=== PATIENT | female | born 1990 | race Caucasian/White ===

== ENCOUNTER 2019-06-29 13:30 | Outpatient (CLI) | payer BC | END 2019-06-29 13:31 | disposition home or self-care (01) | LOC: DTY/OP 13:30 | PROVIDERS: ATTEND Physician Assistant | DX: E66.01 Morbid (severe) obesity due to excess calories (principal) | CPT/HCPCS: 97802 ==

== ENCOUNTER 2019-07-03 08:12 | Outpatient (CLI) | payer BC ==
--- NOTE | 2019-07-03 09:21 | ULT ---
RIGHT UPPER QUADRANT ULTRASOUND: Date: 07/03/2019 HISTORY: 28-year-old female with right upper quadrant pain. FINDINGS: Exam limited due to patient's body habitus. The liver is not satisfactorily evaluated. The visualized portions of the liver demonstrated increase d echogenicity consistent with fatty infiltration. No definite focal mass or intrahepatic ductal dila tation is seen. No gallstones, gallbladder wall thickening, or pericholecystic fluid identified. The common duct measures 5.0 mm in diameter. The right kidney and visualized portions of the pancreas are unremarkable. No free fluid is seen in Morison's pouch. IMPRESSION: 1. Fatty liver. 2. No evidence of cholelithiasis. POS: [facility]
== END 2019-07-03 08:13 | disposition home or self-care (01) ==
LOC: ULT 08:12 → SCSULT 08:13
PROVIDERS: ATTEND Physician Assistant
DX: R10.11 Right upper quadrant pain (principal); K76.0 Fatty (change of) liver, not elsewhere classified
CPT/HCPCS: 76705

== ENCOUNTER 2019-07-10 12:21 | Outpatient (CLI) | payer BC ==
--- NOTE | 2019-07-10 15:22 | RAD ---
PA AND LATERAL CHEST: 07/10/19 HISTORY: Preop. Heart size is upper limits of normal. Mediastinal structures appear unremarkable. The lungs are clear of infiltrates. There are arthritic changes of the spine. IMPRESSION: No active intrathoracic disease. POS: [facility]
== END 2019-07-10 12:22 | disposition home or self-care (01) ==
LOC: BICRAD 12:21
PROVIDERS: ATTEND Physician Assistant
DX: Z01.818 Encounter for other preprocedural examination (principal); I10 Essential (primary) hypertension; E66.01 Morbid (severe) obesity due to excess calories
CPT/HCPCS: 36415; 71046; 80053; 80061; 81001; 83036; 85025

== ENCOUNTER 2019-07-16 09:24 | Outpatient (CLI) | payer OTHER ==
[2019-07-17 11:12] LABS: SARS-CoV-2 MS2 Positive; SARS-CoV-2 N Gene Negative; SARS-CoV-2 S Gene Negative; SARS-CoV-2 orf1ab Negative
== END 2019-07-16 09:25 | disposition home or self-care (01) ==
LOC: LABBT 09:24
PROVIDERS: ATTEND Surgery
DX: Z01.812 Encounter for preprocedural laboratory examination (principal); Z11.59 Encounter for screening for other viral diseases; E66.01 Morbid (severe) obesity due to excess calories
CPT/HCPCS: 87635; U0003

== ENCOUNTER 2019-07-16 16:00 | Inpatient (IN) | payer OTHER ==
[2019-07-18] MEDS ORDERED: Levofloxacin 500 mg/D5W 100 ml Premix Bag ONE (06:35)
[2019-07-18] MEDS ORDERED: Heparin 5,000 UNITS/ML VIAL ONE (06:35)
[2019-07-18] MEDS ORDERED: Fentanyl 100 MCG/2 ML VIAL ONE ×2 (06:41→09:15)
[2019-07-18] MEDS ORDERED: HYDROmorphone 0.5 MG/0.5 ML SYRINGE ONE (06:41)
[2019-07-18] MEDS ORDERED: Lidocaine 1% w/Epinephrine 1:100K 20 ML VIAL ONE (07:02)
[2019-07-18] MEDS ORDERED: Bupivacaine PF 0.5% 30 ML VIAL ONE (07:02)
[2019-07-18] MEDS ORDERED: SUGAMMADEX SODIUM 200 MG/2 ML VIAL ONE ×2 (07:31→08:57)
[2019-07-18] MEDS ORDERED: diphenhydrAMINE 50 MG/ML VIAL IVP PRN ×2 (09:10→09:56)
[2019-07-18] MEDS ORDERED: Hydrocodone-Acetamin 15 ML UDCUP PO PRN (09:10)
[2019-07-18] MEDS ORDERED: Ondansetron PF 4 MG/2 ML Vial IVP PRN ×2 (09:10→09:56)
[2019-07-18] MEDS ORDERED: hydrALAZINE 20 MG/ML VIAL SLOW IVP PRN (09:10)
[2019-07-18] MEDS ORDERED: Dextrose 50% Abboject 50 ML SYRINGE SLOW IVP PRN (09:10)
[2019-07-18] MEDS ORDERED: Promethazine HCl 25 MG/ML VIAL IM PRN ×2 (09:10→09:56)
[2019-07-18] MEDS ORDERED: Dextrose 5% in Water 1,000 ML IV PRN (09:10)
[2019-07-18] MEDS ORDERED: Promethazine HCl 25 MG/ML VIAL ONE (09:39)
[2019-07-18] MEDS ORDERED: fentaNYL Citrate/PF 2,000 MCG in Sodium Chloride 0.9% 60 ML IV PRN (09:56)
[2019-07-18] MEDS ORDERED: diphenhydrAMINE 50 MG/ML VIAL IM PRN (09:56)
[2019-07-18] MEDS ORDERED: Naloxone HCl 0.4 mg/ml Vial IV PRN (09:56)
[2019-07-18] MEDS ORDERED: Fentanyl 20 mcg/ml (100 ml CADD) IV PRN (09:56)
[2019-07-18] MEDS ORDERED: Zolpidem Tartrate 5 MG TAB PO PRN (09:56)
[2019-07-18] MEDS ORDERED: diphenhydrAMINE 25 MG CAP PO PRN (09:56)
[2019-07-18] MEDS ORDERED: Ketorolac Tromethamine 30 MG/ML VIAL IVP PRN (09:56)
[2019-07-18] MEDS ORDERED: Communication Order-Pharmacy FS SCH (10:00)
[2019-07-18] MEDS ORDERED: Ketorolac Tromethamine 30 MG/ML VIAL ONE (10:02)
[2019-07-18] MEDS ORDERED: Ondansetron PF 4 MG/2 ML Vial ONE (10:50)
[2019-07-18] MEDS ORDERED: PHENYLEPHRINE-NS 100 MCG/ML 10 ML SYRINGE ONE (10:50)
[2019-07-18] MEDS ORDERED: Glycopyrrolate 0.2 MG/ML 5 ML SYRINGE ONE (10:50)
[2019-07-18] MEDS ORDERED: Rocuronium Bromide 10 MG/ML (10ML VIAL) ONE (10:50)
[2019-07-18] MEDS ORDERED: EPHEDRINE 25 MG/5 ML SYRINGE ONE (10:50)
[2019-07-18] MEDS ORDERED: PROPOFOL 200 MG/20 ML VIAL ONE (10:50)
[2019-07-18] MEDS ORDERED: Lidocaine 1% PF 5 ML VIAL ONE (10:50)
[2019-07-18 11:41] VITALS: BMI 62.1
[2019-07-18] MEDS: 1/2 NS w/KCL 20 mEq 1,000 ML IV SCH ×2 (12:26→17:22)
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
[2019-07-19] MEDS: 1/2 NS w/KCL 20 mEq 1,000 ML IV SCH ×2 (01:54→04:39)
[2019-07-19 06:07] LABS: #Eosinphils 0.1 thou/uL (0.0-0.7); #Lymphocytes 2.4 thou/uL (1.20-3.40); #Monocytes 0.8 thou/uL (0.11-0.59); #Neutrophils 6.9 thou/uL (1.40-6.50); %Basophils 0.4 % (0.0-1.0); %Eosinophils 0.5 % (0.0-10.0); %Lymphocytes 23.3 % (21.0-51.0); %Monocytes 7.5 % (0.0-10.0); %Neutrophils 68.4 % (42.0-75.0); Hemoglobin 13.7 g/dL (12.0-16.0); Mean Corpuscular HGB CONC 34.1 g/dL (32.0-36.0); Mean Corpuscular Hemoglobin 29.8 pg (27.0-31.0); Mean Corpuscular Volume 87.4 fL (78.0-98.0); Mean Platelet Volume 8.7 fL (7.4-10.4); Platelet Count 276 thou/uL (130-400); RBC Distribution Width 12.5 % (11.5-14.5); Red Blood Cell (RBC) Count 4.59 mill/uL (4.20-5.40); White Blood Cell (WBC) Count 10.1 thou/uL (4.8-10.8)
[2019-07-19 06:27] LABS: Anion Gap 14 mmol/L (10-20); BUN (Urea Nitrogen) 5 mg/dL (7.0-18.7); Calc. Creatinine Clearance 312 mL/min (70-130); Calcium 8.8 mg/dL (7.8-10.44); Carbon Dioxide 22 mmol/L (22-29); Chloride 109 mmol/L (98-107); Estimated GFR-MDRD Greater than 90; Glucose 98 mg/dL (70-105); Potassium 3.6 mmol/L (3.5-5.1); Sodium 141 mmol/L (136-145)
[2019-07-19] MEDS ORDERED: Enoxaparin Sodium 40 MG/0.4 ML SYRINGE SC SCH (09:00)
[2019-07-19] MEDS ORDERED: Pantoprazole 40 MG VIAL IVP SCH (09:00)
--- NOTE | 2019-07-19 10:00 | RAD ---
Upper GI series single column: 07/19/2019 HISTORY: 28-year-old female immediately status post bariatric surgery. TECHNIQUE: Patient swallowed 15 mL Gastrografin. Brief, intermittent fluoroscopy while patient standing. FINDINGS: Contrast progresses through narrowed gastric channel slowly, reaching proximal duodenum. No evidence of high-grade obstruction or leakage. IMPRESSION: Status post vertical sleeve gastrectomy. No evidence of complications.
[2019-07-19 11:05] VITALS: BP 150/84; TEMP 98.7
--- NOTE | 2019-07-20 02:54 | DIS ---
DATE OF ADMISSION: 07/18/2019 DATE OF DISCHARGE: 07/19/2019 DISCHARGE DIAGNOSIS: Morbid obesity. PROCEDURES DURING ADMISSION: Laparoscopic sleeve gastrectomy, intraoperative esophagogastroscopy, and postoperative Gastrografin swallow. HOSPITAL COURSE: The patient was admitted, taken to the operating room. She underwent sleeve gastrectomy. Postoperatively, she has done well. She is tolerating liquids well. Her x-ray is fine. She is discharged home on hydrocodone and Zofran. She will follow up with me in 2 weeks. Job ID: [id number]
== END 2019-07-19 14:52 | disposition home or self-care (01) | DRG 621 ==
LOC: SURG A 07-18 05:57 → SURG B 07-18 11:02
PROVIDERS: ADMIT Surgery; ATTEND Surgery
PROC: 0DB64Z3 Excision of Stomach, Percutaneous Endoscopic Approach, Vertical (ICD-10-PCS; principal; 2019-07-18)
PROC: 0DJ08ZZ Inspection of Upper Intestinal Tract, Via Natural or Artificial Opening Endoscopic (ICD-10-PCS; 2019-07-18)
DX: E66.01 Morbid (severe) obesity due to excess calories (principal); K76.0 Fatty (change of) liver, not elsewhere classified; D64.9 Anemia, unspecified; J45.909 Unspecified asthma, uncomplicated; F32.9 Major depressive disorder, single episode, unspecified; E11.9 Type 2 diabetes mellitus without complications; I10 Essential (primary) hypertension; K21.9 Gastro-esophageal reflux disease without esophagitis; G47.30 Sleep apnea, unspecified; Z68.44 Body mass index [BMI] 60.0-69.9, adult; Z88.0 Allergy status to penicillin; Z88.8 Allergy status to other drugs, medicaments and biological substances; Z79.84 Long term (current) use of oral hypoglycemic drugs; Z79.899 Other long term (current) drug therapy
CPT/HCPCS: 36415; 74240; 80048; 85025; 88307; 88312; 94760; C9113; J1170; J1644; J1650; J1885; J1956; J2001; J2405; J2550; J2704; J3010; J3480; S0020